=== PATIENT | male | born 1975 | race Caucasian/White ===

== ENCOUNTER 2018-02-11 10:53 | Emergency (ER) | payer MEDICAID ==
[2018-02-11] MEDS ORDERED: Ketorolac 60 MG/2 ML SDV IM ONE (11:40)
--- NOTE | 2018-02-11 11:58 | EDM.PDOC ---
ED HPI GENERAL MEDICAL PROBLEM - General Chief Complaint: Lower Extremity Injury/Pain Stated Complaint: RIGHT CALF PAIN Time Seen by Provider: 02/11/18 11:40 Source of Information: Reports: Patient History Limitations: Reports: No Limitations - History of Present Illness INITIAL COMMENTS - FREE TEXT/NARRATIVE: Patient presents today for complaint of sudden onset right medial calf pain while climbing up a north fork bed. He states he is able to walk, but has pain to right medial calf. He denies any other injuries, fever, chills, nausea or concerns. Right Lower Leg Pain Score (Numeric/FACES): 9 - Related Data Allergies Allergy/AdvReac Type Severity Reaction Status Date / Time Penicillins Allergy Anaphylactic Verified 02/11/18 11:18 Shock Home Meds: Home Meds Hydrochlorothiazide/Lisinopril [Lisinopril/HCTZ 20-12.5 MG] 12.5 - 40 tab PO DAILY 02/11/18 [History] QUEtiapine Fumarate [Seroquel] 300 mg PO BEDTIME 02/11/18 [History] Venlafaxine [Effexor] 75 mg PO DAILY 02/11/18 [History] lamoTRIgine [Lamictal] 200 mg PO DAILY 02/11/18 [History] Past Medical History HEENT History: Reports: Impaired Vision Cardiovascular History: Reports: High Cholesterol, Hypertension Respiratory History: Reports: Asthma Neurological History: Reports: Head Trauma Psychiatric History: Reports: Anxiety, Bipolar, Depression Endocrine/Metabolic History: Reports: Other (See Below) Other Endocrine/Metabolic History: phenocromocytosis - Infectious Disease History Infectious Disease History: Reports: Chicken Pox - Past Surgical History Musculoskeletal Surgical History: Reports: Shoulder Surgery Social & Family History - Tobacco Use Smoking Status *Q: Former Smoker Years of Tobacco use: 39 Used Tobacco, but Quit: Yes Month/Year Tobacco Last Used: 2017 Second Hand Smoke Exposure: No - Caffeine Use Caffeine Use: Reports: Coffee, Tea - Recreational Drug Use Recreational Drug Use: Yes Recreational Drug Type: Reports: Marijuana/Hashish Recreational Drug Use Frequency: Weekly Review of Systems - Review of Systems Review Of Systems: See Below Constitutional: Reports: No Symptoms Eyes: Reports: No Symptoms Ears: Reports: No Symptoms Nose: Reports: No Symptoms Mouth/Throat: Reports: No Symptoms Respiratory: Reports: No Symptoms Cardiovascular: Reports: No Symptoms GI/Abdominal: Reports: No Symptoms Musculoskeletal: Reports: Leg Pain, Muscle Pain, Other (Lower Right medial pain) Skin: Reports: Other (edema to right lower leg. ). Denies: Bruising, Pruritis, Rash, Erythema Neurological: Reports: No Symptoms Psychiatric: Reports: No Symptoms ED EXAM, GENERAL - Physical Exam Exam: See Below Free Text/Narrative:: Raad is an alert and oriented 43 year old male with complaints of acute onset right medial leg pain after a sudden push-off walking up a north fork bed today at 1000. Exam Limited By: No Limitations General Appearance: Alert, WD/WN, Mild Distress Eye Exam: Bilateral Eye: Normal Inspection, PERRL Head: Atraumatic, Normocephalic Neck: Normal Inspection, Supple, Non-Tender, Full Range of Motion. No: Lymphadenopathy (R), Lymphadenopathy (L) Respiratory/Chest: No Respiratory Distress, Lungs Clear, Normal Breath Sounds, No Accessory Muscle Use, Chest Non-Tender Cardiovascular: Normal Peripheral Pulses, Regular Rate, Rhythm, No Edema, No Murmur, No Rub Peripheral Pulses: 2+: Dorsalis Pedis (L), Dorsalis Pedis (R) Back Exam: Normal Inspection, Full Range of Motion. No: CVA Tenderness (R), CVA Tenderness (L) Extremities: No Pedal Edema, Normal Capillary Refill, Limited Range of Motion, Other (Limited ROM to RLE, mild edema over Right gastrocnemius, no ecchymosis, sensation in tack, pain with bearing weight and prefer to keep ankle in plantarflexion. ) Neurological: Alert, Oriented, CN II-XII Intact, Normal Cognition, Normal Reflexes, No Motor/Sensory Deficits, Other (Stable, slightly limping gait, favoring RLE) Psychiatric: Normal Affect, Normal Mood Skin Exam: Warm, Dry, Intact, Normal Color, No Rash. No: Ecchymosis, Erythema Lymphatic: No Adenopathy Course - Vital Signs Last Recorded V/S: Last Vital Signs Temp 36.5 C 02/11/18 11:25 Pulse 88 02/11/18 11:25 Resp 17 02/11/18 11:25 BP 129/92 H 02/11/18 11:25 Pulse Ox 95 02/11/18 11:25 - Orders/Labs/Meds Meds: Medications Discontinued Medications Generic Name Dose Route Start Last Admin Trade Name Freq PRN Reason Stop Dose Admin Ketorolac Tromethamine 60 mg 05/25/18 11:40 02/11/18 11:54 Toradol IM 02/11/18 11:41 60 mg ONETIME ONE Administration - Re-Assessments/Exams Free Text/Narrative Re-Assessment/Exam: 02/11/18 12:10 Reviewed patient assessment, plan and pain control with him. All his questions were answered. He is in agreement with plan. Free Text/Narrative Re-Assessment/Exam: 02/11/18 12:00 [employer] checked, appropriate. Departure - Departure Time of Disposition: 12:06 Disposition: Home, Self-Care 01 Condition: Good Clinical Impression: Gastrocnemius muscle strain - Discharge Information Referrals: Ya Squires PA [Primary Care Provider] - Forms: ED Department Discharge Additional Instructions: You have been evaluated and treated in the emergency room for a right gastrocnemius strain that occurred today. The best management involves resting, elevating above the heart, icing and use of compression to the right lower leg. You were provided toradol 60mg IM in the emergency room for pain. Take ibuprofen 800mg PO twice today and three times a day as needed starting tomorrow. You can also take acetaminophen 650 to 1000mg PO three times a day for pain. Ice to the leg for 20 minutes at a time twice per hour today and next three days to help with swelling and bruising. Wear an jose wrap or compression stocking to the right lower leg to help with swelling and bruising. Use of cam-walker boot at all times to prevent the area from tightening will also help with your pain. There is no indication for x-ray of your leg today, however it would be best for you to follow up with Dr. Veronica Rangel ORTHO next week for further management. You have been provided Tramadol 50mg, one tablet three times a day as needed for pain #9. Return for worsening, issues or concerns. - Assessment/Plan Assessment:: Right gastrocnemius strain Jose wrap to RLE Cam-Walker boot fitted and provided to patient Toradol 60mg IM in ER He declined offer of crutches, stating he has some at home. Plan: Patient evaluated and treated in the emergency room for a right gastrocnemius strain that occurred today. The best management involves resting, elevating icing and use of compression to the right lower leg. He was provided toradol 60mg IM in the emergency room for pain. Take ibuprofen 800mg PO twice today and three times a day as needed starting tomorrow. He can also take acetaminophen 650 to 1000mg PO three times a day for pain. Ice to the leg for 20 minutes at a time twice per hour today and tomorrow to help with swelling and bruising. Wear an jose wrap or compression stocking to the right lower leg to help with swelling and bruising. Use of cam-walker boot at all times to prevent the area from tightening will also help with pain. There is no indication for x-ray of leg today, however it would be best for him to follow up with Dr. Veronica Rangel ORTHO next week for further management. He was provided hard copy script for Tramadol 50mg, one tablet three times a day as needed for pain #9. Return for worsening, issues or concerns.
== END 2018-02-11 12:21 | disposition home or self-care (01) ==
LOC: JP.ED 10:53
DX: S86.911A Strain of unspecified muscle(s) and tendon(s) at lower leg level, right leg, initial encounter (principal); E78.00 Pure hypercholesterolemia, unspecified; I10 Essential (primary) hypertension; Z88.0 Allergy status to penicillin; Z87.891 Personal history of nicotine dependence; X58.XXXA Exposure to other specified factors, initial encounter
CPT/HCPCS: 96372; 99283; J1885

== ENCOUNTER 2019-04-29 11:31 | Emergency (ER) | payer MEDICAID ==
[2019-04-29] MEDS ORDERED: Bupivacaine 0.5% 10 ML SDV INJECT ONE (11:53)
--- NOTE | 2019-04-29 12:10 | EDM.PDOC ---
ED HPI GENERAL MEDICAL PROBLEM - General Chief Complaint: Neck Problem Stated Complaint: PINCHED NERVE RT SIDE OF NECK Time Seen by Provider: 04/29/19 11:45 Source of Information: Reports: Patient History Limitations: Reports: No Limitations - History of Present Illness INITIAL COMMENTS - FREE TEXT/NARRATIVE: Raad is a 44 year old male who presents to the ED today with c/o ongoing right posterior neck pain for the last week radiating to right shoulder, to right upper arm. Patient was seen a week ago and put on short term prednisone and tramadol, has been taking Aleve, Ibuprofen, ice/heat with really no relief. Patient denies any injury or trauma, does feel that his arm is weaker than normal. Able to use arm. Patient denies any other concerns today. Onset: Gradual Duration: Week(s): (2) Neck Pain Score (Numeric/FACES): 8 - Related Data Allergies Allergy/AdvReac Type Severity Reaction Status Date / Time Penicillins Allergy Anaphylactic Verified 04/29/19 11:40 Shock Home Meds: Home Meds Hydrochlorothiazide/Lisinopril [Lisinopril/HCTZ 20-12.5 MG] 12.5 - 40 tab PO DAILY 02/11/18 [History] QUEtiapine Fumarate [Seroquel] 300 mg PO BEDTIME 02/11/18 [History] Venlafaxine [Effexor] 75 mg PO DAILY 02/11/18 [History] lamoTRIgine [Lamictal] 200 mg PO DAILY 02/11/18 [History] Past Medical History HEENT History: Reports: Impaired Vision Cardiovascular History: Reports: High Cholesterol, Hypertension Respiratory History: Reports: Asthma Musculoskeletal History: Reports: None Other Musculoskeletal History: right leg pain Neurological History: Reports: Head Trauma Psychiatric History: Reports: Anxiety, Bipolar, Depression Endocrine/Metabolic History: Reports: Other (See Below) Other Endocrine/Metabolic History: phenocromocytosis - Infectious Disease History Infectious Disease History: Reports: Chicken Pox - Past Surgical History Head Surgeries/Procedures: Reports: None HEENT Surgical History: Reports: None Cardiovascular Surgical History: Reports: None Respiratory Surgical History: Reports: None Endocrine Surgical History: Reports: None Neurological Surgical History: Reports: None Musculoskeletal Surgical History: Reports: Shoulder Surgery Other Musculoskeletal Surgeries/Procedures:: left shoulder Dermatological Surgical History: Reports: None Social & Family History - Tobacco Use Smoking Status *Q: Former Smoker Used Tobacco, but Quit: Yes Month/Year Tobacco Last Used: 2016 Second Hand Smoke Exposure: No - Caffeine Use Caffeine Use: Reports: Tea - Recreational Drug Use Recreational Drug Use: No ED ROS GENERAL - Review of Systems Review Of Systems: ROS reveals no pertinent complaints other than HPI. ED EXAM, GENERAL - Physical Exam Exam: See Below Exam Limited By: No Limitations General Appearance: Alert, WD/WN, No Apparent Distress Ears: Normal External Exam Nose: Normal Inspection Throat/Mouth: Normal Inspection Head: Atraumatic Neck: Normal Inspection, Supple, Full Range of Motion, Tender Lateral (right lateral to C7, tenderness to trapezius musculature to right shoulder). No: Tender Midline Respiratory/Chest: No Respiratory Distress, Lungs Clear Cardiovascular: Normal Peripheral Pulses, Regular Rate, Rhythm Peripheral Pulses: 2+: Radial (L), Radial (R) Back Exam: Normal Inspection Neurological: Alert, Oriented, CN II-XII Intact, Normal Reflexes, Other (mild decrease in strength to RUE, 4/5) Psychiatric: Normal Affect, Normal Mood Course - Vital Signs Last Recorded V/S: Last Vital Signs Temp 36.4 C 04/29/19 11:43 Pulse 96 04/29/19 11:43 Resp 16 04/29/19 11:43 BP 155/98 H 04/29/19 11:43 Pulse Ox 96 04/29/19 11:43 Raad is a 44 year old male, presents to the ED today with ongoing right lateral neck pain. Please refer to HPI and focused exam. Patient's symptoms are consistent with a cervical radiculopathy. I discussed with patient trigger point injections which he verbally consented to. 10 ml of 0.5 % Marcaine injected into 5 different trigger points along right posterior lateral neck and right trapezius region with good relief. I am going to start patient on a Prednisone taper. He can continue with Ibuprofen/Tylenol for pain. Percocet for severe pain, small supply of Valium for muscle spasms. Lidocaine patches encouraged. Narcotic safety and side effects discussed. I did inform patient I want him to contact his PCP on Wednesday to discuss scheduling an outpatient MRI. Reasons to return to the ED discussed, patient agreeable to plan of care and discharged in stable condition. - Orders/Labs/Meds Meds: Medications Discontinued Medications Generic Name Dose Route Start Last Admin Trade Name Freq PRN Reason Stop Dose Admin Bupivacaine HCl 10 ml 04/29/19 11:53 04/29/19 11:56 Sensorcaine-Mpf 0.5% INJECT 04/29/19 11:54 10 ml ONETIME ONE Administration Departure - Departure Time of Disposition: 12:30 Disposition: Home, Self-Care 01 Condition: Good Clinical Impression: Cervical radiculopathy - Discharge Information Instructions: Cervical Radiculopathy Referrals: Ya Squires PA [Primary Care Provider] - Additional Instructions: Start Prednisone taper today and take as prescribed. Continue with Ibuprofen or Aleve Percocet for severe pain, this is a narcotic and dose have Tylenol in it, do not drink or drive if you take this. Valium or Flexeril for muscle spasm. Valium is also a narcotic, do not drink or drive if you take it. Call PCP on Wednesday to have MRI scheduled. There is lidocaine patches, 4% over the counter, these may be helpful as well.
== END 2019-04-29 12:24 | disposition home or self-care (01) ==
LOC: JP.ED 11:31
DX: M54.12 Radiculopathy, cervical region (principal); I10 Essential (primary) hypertension; F41.9 Anxiety disorder, unspecified; F32.9 Major depressive disorder, single episode, unspecified; Z87.891 Personal history of nicotine dependence; Z79.899 Other long term (current) drug therapy; Z88.0 Allergy status to penicillin
CPT/HCPCS: 20552; 99283; J3490

== ENCOUNTER 2020-03-07 10:41 | Emergency (ER) | payer MEDICAID ==
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
== END 2020-03-07 11:46 | disposition home or self-care (01) ==
LOC: JP.ED 10:41
DX: H60.332 Swimmer's ear, left ear (principal); I10 Essential (primary) hypertension; J45.909 Unspecified asthma, uncomplicated; F31.9 Bipolar disorder, unspecified; F41.9 Anxiety disorder, unspecified; Z87.891 Personal history of nicotine dependence; Z91.010 Allergy to peanuts; Z88.0 Allergy status to penicillin; Z79.899 Other long term (current) drug therapy
CPT/HCPCS: 99282